=== PATIENT | male | born 1965 | race Two or more races ===

== ENCOUNTER 2024-09-17 06:07 | Outpatient (CLI) | payer MEDICAID ==
[2024-09-17 07:14] LABS: Hematocrit 39.4 % (41.0-53.0); Hemoglobin 13.6 g/dL (13.5-17.5); Mean Corpuscular Hemoglobin 30.5 pg (28.0-32.0); Mean Corpuscular Volume 88.1 fL (80.0-100.0); Nucleated Red Blood Cells % 0.1 %
[2024-09-17 08:18] LABS: Urine Protein, UAD Negative (Negative)
[2024-09-17 08:31] LABS: Alanine Aminotransferase 13 U/L (7-40); Alkaline Phosphatase 81 U/L (46-116); Anion Gap 10 (5-15); BUN/Creatinine Ratio 22.1 (10.0-20.0); Blood Urea Nitrogen 17 mg/dL (9-23); Calcium 9.5 mg/dL (8.7-10.4); Carbon Dioxide 27 mmol/L (20-31); Chloride 99 mmol/L (98-107); Magnesium 1.7 mg/dL (1.6-2.6); Potassium 4.1 mmol/L (3.5-5.1); Sodium 136 mmol/L (136-145); Total Protein 7.0 g/dL (5.7-8.2); Triglycerides 147 mg/dL (< 150)
[2024-09-17 08:32] LABS: Albumin 4.7 g/dL (3.2-4.8); Cholesterol 168 mg/dL (< 200); HDL Cholesterol 43 mg/dL (40-59)
[2024-09-17 08:33] LABS: Bilirubin, Total 0.5 mg/dL (0.2-1.0)
[2024-09-17 08:35] LABS: Glucose 188 mg/dL (74-106)
[2024-09-17 08:44] LABS: Uric Acid 5.1 mg/dL (3.7-9.2)
== END 2024-09-17 17:00 | disposition home or self-care (01) ==
LOC: LAB 06:07
PROVIDERS: ATTEND Internal Medicine
DX: E78.49 Other hyperlipidemia (principal); E61.2 Magnesium deficiency; E79.0 Hyperuricemia without signs of inflammatory arthritis and tophaceous disease; E55.9 Vitamin D deficiency, unspecified; D51.9 Vitamin B12 deficiency anemia, unspecified; R82.90 Unspecified abnormal findings in urine; R82.79 Other abnormal findings on microbiological examination of urine; R82.998 Other abnormal findings in urine; R94.6 Abnormal results of thyroid function studies; R68.89 Other general symptoms and signs; R73.09 Other abnormal glucose
CPT/HCPCS: 36415; 80053; 80061; 81001; 82306; 82607; 82746; 83036; 83735; 84443; 84550; 85025; 87086